=== PATIENT | male | born 1980 | race Caucasian/White ===

== ENCOUNTER 2022-08-04 16:11 | Emergency (ER) | payer OTHER ==
[2022-08-04] MEDS ORDERED: Sodium Chloride 0.9% 1000 ML 1,000 ML IV STA (16:26)
[2022-08-04] MEDS ORDERED: Ativan 2 MG/1 ML VIAL IV ONE (16:26)
[2022-08-04] MEDS ORDERED: Ativan 2 MG/1 ML VIAL ONE (16:32)
[2022-08-04] MEDS ORDERED: Sodium Chloride 0.9% 1000 ML 1,000 ML ONE (16:32)
[2022-08-04 16:46] LABS: Appearance Clear (Clear); Bacteria None Seen /HPF (None Seen); Bilirubin Negative (Negative); Blood Negative (Negative); Epithelial Cells None Seen /HPF (None Seen); Glucose, Urine Negative (Negative); Hyaline Casts NONE SEEN /LPF (0-2); Ketones Negative (Negative); Leukocyte Esterase Negative (Negative); Nitrite Negative (Negative); Ph 5.5 (4.6-8.0); Protein,Urine Dip Negative (Negative); RBC 0-2 /HPF (0-5); Specific Gravity 1.015 (1.005-1.030); Urobilinogen 0.2 mg/dL (0.2); WBC 0-2 /HPF (0-5)
[2022-08-04 16:46] LABS: Absolute Neutrophil Ct (ANC) 6.63 x10^3/uL (1.4-6.9); BASOPHIL % 0.6 % (0.0-0.4); Basophil (Absolute #) 0.06 x10^3/uL (0-0.4); Eosinophil % 0.4 % (0.00-5.0); Eosinophil (Absolute #) 0.04 x10^3/uL (0-0.5); Hematocrit 53.3 % (42-50); Hemoglobin 18.7 g/dL (12.5-18.0); IMMATURE GRAN # 0.04 x10^3u/L (0.00-0.03); IMMATURE GRAN % 0.4 % (0.00-0.4); Lymphocyte (Absolute #) 2.07 x10^3/uL (1.0-4.6); Lymphocytes % 21.9 % (24.0-44.0); Mean Cell Volume 90.5 fL (78-100); Mean Corpuscular Hemoglobin 31.7 pg (26-32); Mean Corpuscular Hgb Concent. 35.1 g/dL (32-36); Mean Platelet Volume 8.8 fL (7.5-11.0); Monocytes % 6.4 % (0.0-12.0); Neutrophil % 70.3 % (36.0-66.0); Platelet Count 336 x10^3/uL (150-450); Red Blood Count 5.89 x10^6/uL (4.1-5.6); Red Cell Distribution Width 11.6 % (11.5-14.0); White Blood Count 9.4 x10^3/uL (4.0-10.5)
[2022-08-04 16:50] LABS: ADD URINE CULTURE? NO (NO)
[2022-08-04] MEDS ORDERED: LOPRESSOR INJECTION IV ONE ×2 (16:50→16:52)
[2022-08-04 16:57] LABS: Amphetamine,Urine NEGATIVE (NEGATIVE); Barbiturate,Urine NEGATIVE (NEGATIVE); Benzodiazepine,Urine NEGATIVE (NEGATIVE); Cocaine,Urine NEGATIVE (NEGATIVE); Methadone,Urine NEGATIVE (NEGATIVE); Opiate,Urine NEGATIVE (NEGATIVE); PCP,Urine NEGATIVE (NEGATIVE); THC,Urine NEGATIVE (NEGATIVE)
[2022-08-04 17:01] LABS: ACETAMINOPHEN < 10 ug/ml (10-30); ALBUMIN 4.6 g/dL (3.5-5.0); ALKALINE PHOSPHATASE 48 U/L (38-126); BLOOD UREA NITROGEN 13 mg/dL (9-20); CHLORIDE 103 mmol/L (98-107); Calcium 9.1 mg/dL (8.4-10.2); Carbon Dioxide 28 mmol/L (22-30); Creatinine 1 0.81 mg/dL (0.66-1.25); EST GLOMERULAR FILTRATION RATE > 60.0 ML/MIN; ETHYL ALCOHOL < 10 mg/dL (0-10); Glucose 133 mg/dL (74-106); Potassium 4.5 mmol/L (3.5-5.1); SALICYLATE < 1.0 mg/dL (2-20); SGOT/AST 25 U/L (17-59); SGPT/ALT 19 U/L (0-50); SODIUM 143 mmol/L (137-145); Total Protein 7.5 g/dL (6.3-8.2)
--- NOTE | 2022-08-04 17:13 | ERPHSYRPT ---
- History of Present Illness Time Seen by Provider: 08/04/22 16:30 Source: patient Exam Limitations: no limitations Patient Subjective Stated Complaint: pt reports anxiety for the last several weeks, states today it got worse, and he cannot stop shaking, reports he tried t o donate plasma recently and his heart rate was 189, they told him he cannot come back until he has a doctors note. pt reports history of anxiety but has recently moved and is waiting to see [facility] and Dr Mercado. Triage Nursing Assessment: pt is aox3, pt appears anxious, pt shaking uncontrollably, afebrile, resps easy and non labored, cap refill < 3 seconds, radial pulses strong and equal, pt tachycardic, pt skin flushed, warm, dry. Physician History: Patient is a 42-year-old white male who has apparently had a long history of chronic anxiety he recently moved here from [place] where he has just had a divorce he has not yet established himself with [facility] but has an appointment with them on Friday. He has apparently seen Dr. Mercado as his PCP since arriving here. He reports his chronic anxiety has been a lot worse since he has been off his medicines he has been treated with Valium in the past. He also has ADHD and takes Adderall for that.He has symptoms of tremors and and has displayed a tachycardia. Timing/Duration: week(s) (Several) Severity of Symptoms-Max: severe Severity of Symptoms-Current: severe Context related to: recent divorce Suicidal thoughts: other (Denies suicidal thoughts) Associated Symptoms: anxiety, No suicidal ideation Previous symptoms: same symptoms as today Allergies/Adverse Reactions: cephalexin [From Keflex] Allergy (Verified 08/04/22 16:26) Hx Tetanus, Diphtheria Vaccination/Date Given: Yes Hx Influenza Vaccination/Date Given: No Hx Pneumococcal Vaccination/Date Given: No Immunizations Up to Date: Yes Travel Risk - International Travel Have you traveled outside of the country in past 3 weeks: No - Coronavirus Screening Are you exhibiting any of the following symptoms?: No Close contact with a COVID-19 positive Pt in past 14-21 Days: No - Vaccine Status Have you recieved a Covid-19 vaccination: No - Past Medical History Pertinent Past Medical History: No Psycho-Social History: Anxiety, Depression Other Medical History: ADHD - Past Surgical History Past Surgical History: No - Social History Smoking Status: Current every day smoker Drug Use: none Patient Lives Alone: No - Review of Systems Constitutional: No Fever, No Chills Eyes: No Symptoms Ears, Nose, & Throat: No Symptoms Respiratory: No Cough, No Dyspnea Cardiac: No Chest Pain, No Edema, No Syncope Abdominal/Gastrointestinal: No Abdominal Pain, No Nausea, No Vomiting, No Diarrhea Genitourinary Symptoms: No Dysuria Musculoskeletal: No Back Pain, No Neck Pain Skin: No Rash Neurological: No Dizziness, No Focal Weakness, No Sensory Changes Psychological: Anxiety, No Suicidal Ideations, No Homicidal Ideations Endocrine: No Symptoms All Other Systems: Reviewed and Negative - Nursing Vital Signs Nursing Vital Signs: Initial Vital Signs Temperature 98 F 08/04/22 16:16 Pulse Rate 148 H 08/04/22 16:16 Respiratory Rate 18 08/04/22 16:16 Blood Pressure 140/104 08/04/22 16:16 O2 Sat by Pulse Oximetry 100 08/04/22 16:16 Pain Scale Pain Intensity 0 - Physical Exam General Appearance: moderate distress Eyes, Ears, Nose, Throat Exam: normal ENT inspection, moist mucous membranes Neck Exam: normal inspection, non-tender, supple Respiratory Exam: normal breath sounds, lungs clear, No respiratory distress Cardiovascular Exam: tachycardia, No edema Gastrointestinal/Abdominal Exam: soft, No tenderness, No distention Extremities Exam: normal inspection, normal range of motion, No evidence of injury, No edema Current Suicidality: denies suicide plan Neurological Exam: alert, agitated, anxious Appearance: appropriate appearance Behavior/Eye Contact/Speech: alert & cooperative, cooperative Thoughts/Hallucinations: obsessive Skin Exam: normal color, warm, dry, No rash SpO2 Interpretation: normal SpO2: 97 O2 Delivery: Room Air - Course Nursing assessment & vital signs reviewed: Yes EKG Interpreted by Me: RATE (131), Sinus Tach, NORMAL AXIS, Other (, Re polarization abnormality noted consider left ventricular hypertrophy) Ordered Tests: Active Orders 24 hr Category Date Time Status Cruise Director STAT Care 08/04/22 16:37 Active IV Insertion STAT Care 08/04/22 16:29 Active ACETAMINOPHEN Stat Lab 08/04/22 16:44 Completed CBC W DIFF Stat Lab 08/04/22 16:44 Completed CMP Stat Lab 08/04/22 16:44 Completed ETHYL ALCOHOL Stat Lab 08/04/22 16:44 Completed SALICYLATE Stat Lab 08/04/22 16:44 Completed TROPONIN Q4H Lab 08/04/22 16:40 Completed TROPONIN Q4H Lab 08/04/22 21:00 Ordered TSH [TSH, 3RD Generation] Stat Lab 08/04/22 16:40 Completed UA W/RFX UR CULTURE Stat Lab 08/04/22 16:29 Completed Urine Triage Profile Stat Lab 08/04/22 16:29 Completed Medication Summary Discontinued Medications Generic Name Dose Route Start Last Admin Trade Name Irma PRN Reason Stop Dose Admin Sodium Chloride 1,000 mls @ 999 mls/hr 08/04/22 16:26 08/04/22 17:34 Sodium Chloride 0.9% 1000 Ml IV 08/04/22 17:26 Infused .Q1H1M STA Infusion Sodium Chloride Confirm 08/04/22 16:32 Sodium Chloride 0.9% 1000 Ml Administered 08/04/22 16:33 Dose 1,000 mls @ ud .ROUTE .STK-MED ONE Lorazepam 1 mg 08/04/22 16:26 08/04/22 16:33 Lorazepam 2 Mg/1 Ml 2 Mg Vial IV 08/04/22 16:27 1 mg STAT ONE Administration Lorazepam Confirm 08/04/22 16:32 Lorazepam 2 Mg/1 Ml 2 Mg Vial Administered 08/04/22 16:33 Dose 2 mg .ROUTE .STK-MED ONE Metoprolol Tartrate 5 mg 08/04/22 16:50 08/04/22 16:52 Metoprolol Tartrate 5 Mg/5 Ml Vial IV 08/04/22 16:51 5 mg STAT ONE Administration Metoprolol Tartrate Confirm 08/04/22 16:52 Metoprolol Tartrate 5 Mg/5 Ml Vial Administered 08/04/22 16:53 Dose 5 mg IV .STK-MED ONE Lab/Rad Data: Laboratory Result Diagrams 08/04/22 16:44 08/04/22 16:44 Laboratory Results 08/04/22 08/04/22 08/04/22 Range/Units 16:44 16:44 16:40 WBC 9.4 (4.0-10.5) x10^3/uL RBC 5.89 H (4.1-5.6) x10^6/uL Hgb 18.7 H (12.5-18.0) g/dL Hct 53.3 H (42-50) % MCV 90.5 (78-100) fL MCH 31.7 (26-32) pg MCHC 35.1 (32-36) g/dL RDW 11.6 (11.5-14.0) % Plt Count 336 (150-450) x10^3/uL MPV 8.8 (7.5-11.0) fL Gran % 70.3 H (36.0-66.0) % Immature Gran % (Auto) 0.4 (0.00-0.4) % Nucleat RBC Rel Count 0.0 (0.00-0.1) % Eos # (Auto) 0.04 (0-0.5) x10^3/uL Immature Gran # (Auto) 0.04 H (0.00-0.03) x10^3u/L Absolute Lymphs (auto) 2.07 (1.0-4.6) x10^3/uL Absolute Monos (auto) 0.60 (0.0-1.3) x10^3/uL Absolute Nucleated RBC 0.00 (0.00-0.01) x10^3u/L Lymphocytes % 21.9 L (24.0-44.0) % Monocytes % 6.4 (0.0-12.0) % Eosinophils % 0.4 (0.00-5.0) % Basophils % 0.6 (0.0-0.4) % Absolute Granulocytes 6.63 (1.4-6.9) x10^3/uL Basophils # 0.06 (0-0.4) x10^3/uL Sodium 143 (137-145) mmol/L Potassium 4.5 (3.5-5.1) mmol/L Chloride 103 (98-107) mmol/L Carbon Dioxide 28 (22-30) mmol/L Anion Gap 16.0 H (5-15) MEQ/L BUN 13 (9-20) mg/dL Creatinine 0.81 (0.66-1.25) mg/dL Estimated GFR > 60.0 ML/MIN Glucose 133 H (74-106) mg/dL Calcium 9.1 (8.4-10.2) mg/dL Total Bilirubin 0.80 (0.2-1.3) mg/dL AST 25 (17-59) U/L ALT 19 (0-50) U/L Alkaline Phosphatase 48 (38-126) U/L Troponin I 0.024 (0.000-0.034) ng/mL Serum Total Protein 7.5 (6.3-8.2) g/dL Albumin 4.6 (3.5-5.0) g/dL TSH 3rd Generation (0.47-4.68) mIU/L Urine Color (Yellow) Urine Appearance (Clear) Urine pH (4.6-8.0) Ur Specific [place] (1.005-1.030) Urine Protein (Negative) Urine Glucose (UA) (Negative) mg/dL Urine Ketones (Negative) Urine Blood (Negative) Urine Nitrite (Negative) Urine Bilirubin (Negative) Urine Urobilinogen (0.2) mg/dL Ur Leukocyte Esterase (Negative) U Hyaline Cast (Auto) (0-2) /LPF Urine Microscopic RBC (0-5) /HPF Urine Microscopic WBC (0-5) /HPF Ur Epithelial Cells (None Seen) /HPF Urine Bacteria (None Seen) /HPF Urine Culture Reflexed (NO) Salicylates < 1.0 L (2-20) mg/dL Urine Opiates Level (NEGATIVE) Ur Methadone (NEGATIVE) Acetaminophen < 10 L (10-30) ug/ml Urine Barbiturates (NEGATIVE) Ur Phencyclidine (PCP) (NEGATIVE) Urine Amphetamine (NEGATIVE) U Benzodiazepine Level (NEGATIVE) Urine Cocaine (NEGATIVE) Urine Marijuana (THC) (NEGATIVE) Ethyl Alcohol < 10 (0-10) mg/dL 08/04/22 08/04/22 08/04/22 Range/Units 16:40 16:29 16:29 WBC (4.0-10.5) x10^3/uL RBC (4.1-5.6) x10^6/uL Hgb (12.5-18.0) g/dL Hct (42-50) % MCV (78-100) fL MCH (26-32) pg MCHC (32-36) g/dL RDW (11.5-14.0) % Plt Count (150-450) x10^3/uL MPV (7.5-11.0) fL Gran % (36.0-66.0) % Immature Gran % (Auto) (0.00-0.4) % Nucleat RBC Rel Count (0.00-0.1) % Eos # (Auto) (0-0.5) x10^3/uL Immature Gran # (Auto) (0.00-0.03) x10^3u/L Absolute Lymphs (auto) (1.0-4.6) x10^3/uL Absolute Monos (auto) (0.0-1.3) x10^3/uL Absolute Nucleated RBC (0.00-0.01) x10^3u/L Lymphocytes % (24.0-44.0) % Monocytes % (0.0-12.0) % Eosinophils % (0.00-5.0) % Basophils % (0.0-0.4) % Absolute Granulocytes (1.4-6.9) x10^3/uL Basophils # (0-0.4) x10^3/uL Sodium (137-145) mmol/L Potassium (3.5-5.1) mmol/L Chloride (98-107) mmol/L Carbon Dioxide (22-30) mmol/L Anion Gap (5-15) MEQ/L BUN (9-20) mg/dL Creatinine (0.66-1.25) mg/dL Estimated GFR ML/MIN Glucose (74-106) mg/dL Calcium (8.4-10.2) mg/dL Total Bilirubin (0.2-1.3) mg/dL AST (17-59) U/L ALT (0-50) U/L Alkaline Phosphatase (38-126) U/L Troponin I (0.000-0.034) ng/mL Serum Total Protein (6.3-8.2) g/dL Albumin (3.5-5.0) g/dL TSH 3rd Generation 0.359 L (0.47-4.68) mIU/L Urine Color Yellow (Yellow) Urine Appearance Clear (Clear) Urine pH 5.5 (4.6-8.0) Ur Specific [place] 1.015 (1.005-1.030) Urine Protein Negative (Negative) Urine Glucose (UA) Negative (Negative) mg/dL Urine Ketones Negative (Negative) Urine Blood Negative (Negative) Urine Nitrite Negative (Negative) Urine Bilirubin Negative (Negative) Urine Urobilinogen 0.2 (0.2) mg/dL Ur Leukocyte Esterase Negative (Negative) U Hyaline Cast (Auto) NONE SEEN (0-2) /LPF Urine Microscopic RBC 0-2 (0-5) /HPF Urine Microscopic WBC 0-2 (0-5) /HPF Ur Epithelial Cells None Seen (None Seen) /HPF Urine Bacteria None Seen (None Seen) /HPF Urine Culture Reflexed NO (NO) Salicylates (2-20) mg/dL Urine Opiates Level NEGATIVE (NEGATIVE) Ur Methadone NEGATIVE (NEGATIVE) Acetaminophen (10-30) ug/ml Urine Barbiturates NEGATIVE (NEGATIVE) Ur Phencyclidine (PCP) NEGATIVE (NEGATIVE) Urine Amphetamine NEGATIVE (NEGATIVE) U Benzodiazepine Level NEGATIVE (NEGATIVE) Urine Cocaine NEGATIVE (NEGATIVE) Urine Marijuana (THC) NEGATIVE (NEGATIVE) Ethyl Alcohol (0-10) mg/dL - Progress Progress: improved Medical Desision Making - Diagnostic Testing Diagnostic test were ordered, analyzed, and reviewed by me: Yes - Risk of complications Low Risk: Low risk of morbidity from additional dx testing or treatment - Departure Departure Disposition: Home Clinical Impression: Anxiety Condition: Stable Critical Care Time: No Referrals: REJI MERCADO [Primary Care Provider] - Follow up/PCP as directed Instructions: Anxiety, Adult (DC) Prescriptions: Lorazepam 1 mg [Ativan 1 MG] 1 mg PO BID 3 Days #6 tablet Metoprolol Tartrate 25 mg [Lopressor 25MG Tab] 25 mg PO BID 30 Days #60 tab
[2022-08-04 18:16] VITALS: BP 118/77; PULSE 98; O2SAT 98
== END 2022-08-04 18:14 | disposition home or self-care (01) ==
LOC: ED 16:11
DX: F41.9 Anxiety disorder, unspecified (principal); R25.1 Tremor, unspecified; R00.0 Tachycardia, unspecified; Z63.5 Disruption of family by separation and divorce; Z28.310 Unvaccinated for COVID-19; Z72.0 Tobacco use
CPT/HCPCS: 36000; 36415; 80053; 80307; 81001; 82384; 82570; 84443; 84484; 85025; 93041; 96374; 96375; 99284; G0480; 82077; J2060